=== PATIENT | male | born 2000 ===

== ENCOUNTER 2025-06-13 01:49 | Emergency (ER) | payer MEDICAID, OTHER ==
[~2025-06-13] VITALS: Ht 177.8 cm; Wt 61.2 kg
--- NOTE | 2025-06-13 05:10 | ED.PDOC ---
GI ASSESSMENT HPI Comments PT PRESENTED TO ED FOR FLU-LIKE S/S: HEADACHE, NAUSEA, VOMITING, GENERALIZED BODY CRAMPS X3 DAYS. DENIES FEVER, CHILLS, ABDOMINAL PAIN, CHEST PAIN, SHORTNESS BREATH OR DIFFICULTY BREATHING. Chief Complaint: Flu like Time Seen by MD: 01:52 Reviewed Notes: Nurses Notes, Medications, Allergies Allergies: Coded Allergies: No Known Drug Allergy (Verified Allergy, Unknown, 06/13/25) Information Source: Patient Mode of Arrival: Ambulatory All Other Systems: Reviewed and Negative (SEE HPI) Physical Exam General Appearance: No Apparent Distress, Normal HEENT: Normal ENT Inspection, Pharynx Normal, TMs Normal Neck: Full Range of Motion, Non-Tender Respiratory: Lungs Clear, No Respiratory Distress, Normal Breath Sounds Cardiovascular: No Edema, No JVD, No Murmur, No Gallop, Normal Peripheral Pu lses, Regular Rate/Rhythm Breast Exam: Deferred Gastrointestinal: No Organomegaly, Non Tender, No Pulsatile Mass, Normal Bowel Sounds, Soft Genitalia: Deferred Pelvic: Deferred Rectal: Deferred Extremities: Normal capillary refill, Non-tender, No pedal edema Musculoskeletal : Apperance: Normal Neurologic: Alert, kineseologist II-XII nml as Tested, No Motor Deficits, Normal Affect, Normal Mood, No Sensory Deficits Cerebellar Function: Normal Reflexes: Normal Skin: Dry, Normal Color, Warm Lymphatic: No Adenopathy Was a procedure done? Was a procedure done?: No GI differential Dx Differential Diagnosis: Gastritis/PUD, Gastroenteritis X-Ray, Labs, Meds, VS Vital Signs Date Time Temp Pulse Resp B/P (MAP) Pulse Ox O2 Delivery O2 Flow Rate FiO2 06/13/25 05:11 98.8 65 16 125/65 (85) 96 98.8 06/13/25 05:11 65 16 96 Room Air 06/13/25 01:52 98.9 60 18 132/61 96 98.9 Current Medications Medications (Trade) Dose Ordered Sig/Kendal Route Start Time Stop Time Status Last Admin Ketorolac Tromethamine (Toradol Injection) 60 mg ONCE ONCE IM 06/13/25 05:15 06/13/25 05:16 DC 06/13/25 05:26 Dexamethasone Sodium Phosphate (Decadron Injection) 10 mg ONCE ONCE IM 06/13/25 05:15 06/13/25 05:16 DC 06/13/25 05:26 Reevaluation 1ST: Unchanged Reevaluation 2ND: Improved Patient Education/Counseling: Diagnosis, Treatment, Prognosis, Need For Follow Up Family Education/Counseling: No Family Present SEPSIS Sepsis Screen Date sepsis recognized/suspect: Jun 13, 2025 Time Sepsis recognized/suspect: 0154 Recent Procedure: No On Antibiotic Therapy: No Respiratory Rate >20: No Heart Rate >90: No Temp<36 C (96.8 F) or >38.3 C: No SBP <90 or MAP <65 mmHG: No New Acute Mental Status Change: No Is the patient on CPAP, BIPAP,: No Vital Signs Date Time Temp Pulse Resp B/P (MAP) Pulse Ox O2 Delivery O2 Flow Rate FiO2 06/13/25 05:11 98.8 65 16 125/65 (85) 96 98.8 06/13/25 05:11 65 16 96 Room Air 06/13/25 01:52 98.9 60 18 132/61 96 98.9 Medications Medications Dose Ordered Sig/Kendal Route Start Time Stop Time Status Last Admin Dose Admin Dexamethasone Sodium Phosphate 10 mg ONCE ONCE IM 06/13/25 05:15 06/13/25 05:16 DC 06/13/25 05:26 Ketorolac Tromethamine 60 mg ONCE ONCE IM 06/13/25 05:15 06/13/25 05:16 DC 06/13/25 05:26 Departure 1 Departure Time of Disposition: 05:27 Impression: Primary Impression: Viral syndrome Disposition: 01 HOME / SELF CARE / HOMELESS Condition: Stable e-Prescriptions Ibuprofen (Ibuprofen) 800 Mg Tab 800 MG PO Q8HP PRN for 5 Days, #15 TAB Prov: LISSETT WHITLOCK 06/13/25 Discharged With: Self Critical Care Note Critical Care Time?: No Stability Stability form required: LISSETT Lo Jun 13, 2025 05:10
[2025-06-13 05:11] VITALS: BP 125/65; PULSE 65; RESP 16; TEMP 98.8; O2SAT 96
[2025-06-13] MEDS: KETOROLAC TROMETH 60MG/2ML VIAL IM ONE (05:26)
[2025-06-13] MEDS ORDERED: IBUP-1456 PO (05:34)
== END 2025-06-13 06:27 | disposition home or self-care (01) ==
LOC: ER 01:49
DX: B34.9 Viral infection, unspecified (principal)
CPT/HCPCS: 96372; 99284; J1100; J1885